=== PATIENT | male | born 1985 | race Caucasian/White ===

== ENCOUNTER 2016-05-08 11:03 | Outpatient (RCR) | payer OTHER ==
--- OUTSIDE RECORDS SUMMARY | 2016-05-08 11:06 | XMS REPORT ---
Author Francisca Agee Organization [facility] Address [address] [place], [place] [id number] Care Team Providers Care Icer Hand Name Role Phone Francisca Mendes PCP Allergies and Adverse Reactions Name Reaction Notes NO KNOWN DRUG ALLERGIES Plan of Treatment Planned Activity Comments Planned Date Planned Time Plan/Goal COMPREHEN METABOLIC PANEL 12/09/2015 12:00 AM Medications Active Name Start Date Estimated Completion Date SIG Comments Fish Oil 300 mg oral capsule take 1 capsule by oral route daily Problem List Not available. Vital Signs Date Time BP-Sys(mm[Hg] BP-Marilynn(mm[Hg]) HR(bpm) RR(rpm) Temp WT HT HC BMI BSA BMI Percentile O2 Sat(%) 12/23/2015 8:58:00 AM 130 mmHg 82 mmHg 12/09/2015 1:47:00 PM 160 mmHg 82 mmHg 75 bpm 18 rpm 98.6 F 260 lbs 74 in 33.38 kg/m2 2.48 m2 96 % Social History Name Description Comments Tobacco use Never Alcohol Use - Rare History of Procedures Date Ordered Description Order Status 12/09/2015 12:00 AM GLYCOSYLATED HEMOGLOBIN TEST Returned 12/09/2015 12:00 AM COMPLETE CBC W/AUTO DIFF WBC Returned 12/23/2015 12:00 AM NO CHARGE OV Reviewed Results Summary Data and Description Results 12/23/2015 9:35 AM GLUCOSE 130.0 mg/dLSODIUM 141.0 mmol/LPOTASSIUM 4.80 mmol/ LCHLORIDE 105.0 mmol/LCO2 27.0 mmol/LBUN 17.0 mg/dLCREATININE 1.0 mg/dLSGOT/AST 19.0 IU/LSGPT/ALT 29.0 IU/LALK PHOS 69.0 IU/LTOTAL PROTEIN 7.20 g/dLALBUMIN 4.70 g/dLTOTAL BILI 0.60 mg/dLCALCIUM 9.30 mg/dLeGFR >60 mL/min/1.73mWBC 7.3 RBC 5.13 HGB 15.10 g/dLHCT 45.0 %MCV 88.0 fLMCH 29.40 pgMCHC 33.60 g/dLRDW CV 12.10 %MPV 10.20 fLPLT 250 %NEUT 55.30 %%LYMP 34.10 %%MONO 6.30 %%EOS 3.20 %% BASO 1.0 %#NEUT 4.01 #LYMP 2.47 #MONO 0.46 #EOS 0.23 #BASO 0.07 Est Avg Glucose 125.5 mg/dL History Of Immunizations Not available. History of Past Illness Name Date of Onset Comments *No known medical problems Elevated blood pressure Dec 09 2015 1:58PM Obesity (BMI 30.0-34.9) Dec 09 2015 1:58PM Routine adult health maintenance Dec 09 2015 1:58PM Hyperglycemia Dec 09 2015 1:58PM Blood pressure check Jan 03 2016 5:54PM Payers Insurance Name Company Name Plan Name Plan Number Policy Number Policy Group Number Start Date C[employer] C[employer]a [id number] N/A History of Encounters Visit Date Visit Type Provider 12/23/[address] Francisca Mendes DO 12/09/[address] Francisca Mendes DO
== END 2016-08-06 | disposition home or self-care (01) ==
LOC: LAB 11:03
PROVIDERS: ATTEND Obstetrics & Gynecology Gynecology
DX: N46.9 Male infertility, unspecified (principal)
CPT/HCPCS: 89320